=== PATIENT | male | born 1955 | race Caucasian/White ===

== ENCOUNTER 2018-06-02 20:21 | Inpatient (IN) | payer MEDICARE, MEDICAID ==
[~2018-06-02] VITALS: Ht 162.6 cm; Wt 62.6 kg
[2018-06-02 20:45] LABS: BASOPHILS % (AUTO) 0.5 % (0.0-2.0); EOSINOPHILS % (AUTO) 1.5 % (1.0-6.0); HEMOGLOBIN 12.3 g/dL (13.5-17.5); LYMPHOCYTES % (AUTO) 34.5 % (22.0-44.0); MEAN CORPUSCULAR HEMOGLOBIN 29.6 pg (26.0-34.0); MEAN CORPUSCULAR HGB CONC 33.2 G/dL (31.0-37.0); MEAN CORPUSCULAR VOLUME 89 fL (80-100); MONOCYTES # (AUTO) 0.9 K/uL (0.1-1.0); MONOCYTES % (AUTO) 10.8 % (2.0-9.0); NEUTROPHILS # (AUTO) 4.5 K/uL (1.8-7.7); NEUTROPHILS % (AUTO) 52.7 % (40.0-70.0); PLATELET COUNT (AUTO) 131 K/uL (150-450); RED BLOOD CELL COUNT(AUTO) 4.14 MIL/uL (4.50-5.90); RED CELL DISTRIBUTION WIDTH 13.9 % (11.5-14.5)
[2018-06-02 20:56] LABS: ANION GAP 9 mmol/L (8-16); CALCIUM, TOTAL 8.4 mg/dL (8.8-10.5); CARBON DIOXIDE 24 mmol/L (22-29); CHLORIDE 101 mmol/L (98-107); CREATININE 0.85 mg/dL (0.60-1.30); GLOMERULAR FILTR. RATE CALC > 60 mL/min (>60); GLUCOSE,RANDOM 102 mg/dL (70-110); POTASSIUM 4.6 mmol/L (3.5-5.1); SODIUM SERUM 134 mmol/L (136-145); UREA NITROGEN, BLOOD 22 mg/dL (7-18)
[2018-06-02 21:02] LABS: ALANINE AMINOTRANSFERASE 28 U/L (12-78); ALBUMIN 3.6 g/dL (3.4-5.0); ALKALINE PHOSPHATASE 126 U/L (46-116); ASPARTATE AMINOTRANSFERASE 32 U/L (15-37); BILIRUBIN,TOTAL 0.3 mg/dL (0.1-1.0); TOTAL PROTEIN, SERUM 7.9 g/dL (6.4-8.2)
[2018-06-03] MEDS ORDERED: ZOLPIDEM TARTRATE 10 MG TABLET PO PRN ×2 (00:15→11:45)
[2018-06-03] MEDS ORDERED: OLANZapine 5 MG RAPDIS TABLET PO PRN (00:15)
[2018-06-03] MEDS ORDERED: LORazepam 2 MG TABLET PO PRN ×2 (00:15→12:15)
[2018-06-03 01:51] VITALS: BP 127/78
[2018-06-03] MEDS ORDERED: PNEUMOCOCCAL VACCINE POLYVALENT 0.5 ML VIAL [PPSV23] IM ONE (04:45)
[2018-06-03 08:32] VITALS: BP 109/63
[2018-06-03] MEDS ORDERED: TUBERCULIN, PURIFIED PROTEIN DERIVATIVE 5 TU/0.1 ML SYG ID ONE (11:45)
[2018-06-03] MEDS ORDERED: HydrOXYzine PAMOATE 50 MG CAPSULE PO PRN (11:45)
[2018-06-03] MEDS ORDERED: MAG HYDROX/AL HYDROX/SIMETH ES 30 ML SUSPENSION UDCUP PO PRN (11:45)
[2018-06-03] MEDS ORDERED: ACETAMINOPHEN 325 MG TABLET PO PRN (11:45)
[2018-06-03] MEDS ORDERED: GuaiFENesin/D-METHORPHAN [SUGAR-FREE] 200-20MG/10 ML SYRUP UDCUP PO PRN (11:45)
[2018-06-03] MEDS ORDERED: PROMETHAZINE HCL 25 MG TABLET PO PRN (11:45)
[2018-06-03] MEDS ORDERED: LOPERAMIDE HCL 2 MG CAPSULE PO PRN (11:45)
[2018-06-03] MEDS ORDERED: MAGNESIUM HYDROXIDE SUSPENSION 30 ML UDCUP PO PRN (11:45)
[2018-06-03] MEDS ORDERED: CYANOCOBALAMIN 1,000 MCG/ML VIAL IM ONE (12:15)
[2018-06-03] MEDS ORDERED: CloNIDine HCL 0.1 MG TABLET PO PRN (12:15)
[2018-06-03 16:10] VITALS: BP 113/75
[2018-06-03] MEDS ORDERED: THIAMINE HCL 100 MG TABLET PO SCH (17:00)
[2018-06-03] MEDS: OLANZapine 5 MG RAPDIS TABLET PO SCH (20:30)
[2018-06-04 04:57] VITALS: BP 110/68
[2018-06-04 08:12] VITALS: BP 107/65
[2018-06-04] MEDS: THIAMINE HCL 100 MG TABLET PO SCH (08:30)
[2018-06-04] MEDS: PANTOPRAZOLE SODIUM 40 MG DR TABLET PO SCH (08:31)
[2018-06-04] MEDS: MULTIVITAMINS WITH MINERALS, THERAPEUTIC TABLET PO SCH (08:31)
[2018-06-04] MEDS: FOLIC ACID 1 MG TABLET PO SCH (08:31)
[2018-06-04] MEDS ORDERED: FOLIC ACID 1 MG TABLET PO SCH (09:00)
[2018-06-04 16:03] VITALS: BP 121/73
[2018-06-04] MEDS: OLANZapine 5 MG RAPDIS TABLET PO SCH (20:38)
[2018-06-05 05:31] VITALS: BP 109/70
[2018-06-05] MEDS: FOLIC ACID 1 MG TABLET PO SCH (08:19)
[2018-06-05] MEDS: PANTOPRAZOLE SODIUM 40 MG DR TABLET PO SCH (08:19)
[2018-06-05] MEDS: MULTIVITAMINS WITH MINERALS, THERAPEUTIC TABLET PO SCH (08:19)
[2018-06-05] MEDS: THIAMINE HCL 100 MG TABLET PO SCH (08:19)
[2018-06-05 08:27] VITALS: BP 135/56
[2018-06-05 09:23] LABS: CHOL/HDL RATIO 3.8 (4.2-7.3)
[2018-06-05 16:58] VITALS: BP 115/73
[2018-06-05] MEDS ORDERED: OLANZapine 10 MG RAPDIS TABLET PO SCH (21:00)
[2018-06-06 06:20] VITALS: BP 120/78
[2018-06-06] MEDS: MULTIVITAMINS WITH MINERALS, THERAPEUTIC TABLET PO SCH (09:23)
[2018-06-06] MEDS: THIAMINE HCL 100 MG TABLET PO SCH (09:23)
[2018-06-06] MEDS: PANTOPRAZOLE SODIUM 40 MG DR TABLET PO SCH (09:23)
[2018-06-06] MEDS: FOLIC ACID 1 MG TABLET PO SCH (09:23)
[2018-06-06 09:57] VITALS: BP 116/88
[2018-06-06 16:11] VITALS: BP 140/80
[2018-06-06] MEDS: OLANZapine 5 MG RAPDIS TABLET PO SCH (20:33)
[2018-06-07 07:24] LABS: EOSINOPHILS % (AUTO) 0 % (1.0-6.0); HEMATOCRIT 35.9 % (41-53); HEMOGLOBIN 11.9 g/dL (13.5-17.5); LYMPHOCYTES % (AUTO) 36.1 % (22.0-44.0); MEAN CORPUSCULAR HEMOGLOBIN 30.2 pg (26.0-34.0); MEAN CORPUSCULAR HGB CONC 33.3 G/dL (31.0-37.0); MEAN CORPUSCULAR VOLUME 91 fL (80-100); MONOCYTES # (AUTO) 0.8 K/uL (0.1-1.0); MONOCYTES % (AUTO) 13.9 % (2.0-9.0); NEUTROPHILS # (AUTO) 2.8 K/uL (1.8-7.7); PLATELET COUNT (AUTO) 118 K/uL (150-450); RED BLOOD CELL COUNT(AUTO) 3.96 MIL/uL (4.50-5.90); RED CELL DISTRIBUTION WIDTH 14.1 % (11.5-14.5)
[2018-06-07 07:28] VITALS: BP 122/83
[2018-06-07 07:42] LABS: ALANINE AMINOTRANSFERASE 22 U/L (12-78); ALBUMIN 3.3 g/dL (3.4-5.0); ALKALINE PHOSPHATASE 102 U/L (46-116); ANION GAP 4 mmol/L (8-16); ASPARTATE AMINOTRANSFERASE 23 U/L (15-37); BILIRUBIN,TOTAL 0.2 mg/dL (0.1-1.0); CALCIUM, TOTAL 8.2 mg/dL (8.8-10.5); CARBON DIOXIDE 32 mmol/L (22-29); CHLORIDE 104 mmol/L (98-107); CREATINE KINASE, TOTAL ONLY 27 U/L (39-308); CREATININE 0.88 mg/dL (0.60-1.30); GLOMERULAR FILTR. RATE CALC > 60 mL/min (>60); GLUCOSE,RANDOM 99 mg/dL (70-110); POTASSIUM 4.4 mmol/L (3.5-5.1); SODIUM SERUM 140 mmol/L (136-145); TOTAL PROTEIN, SERUM 6.8 g/dL (6.4-8.2); UREA NITROGEN, BLOOD 23 mg/dL (7-18)
[2018-06-07 08:27] VITALS: BP 121/80
[2018-06-07] MEDS: PANTOPRAZOLE SODIUM 40 MG DR TABLET PO SCH (08:36)
[2018-06-07] MEDS: MULTIVITAMINS WITH MINERALS, THERAPEUTIC TABLET PO SCH (08:36)
[2018-06-07] MEDS: THIAMINE HCL 100 MG TABLET PO SCH (08:36)
[2018-06-07] MEDS: FOLIC ACID 1 MG TABLET PO SCH (08:36)
[2018-06-07 16:15] VITALS: BP 108/75
[2018-06-07] MEDS: OLANZapine 5 MG RAPDIS TABLET PO SCH (20:10)
[2018-06-08 05:14] VITALS: BP 110/68
[2018-06-08] MEDS: THIAMINE HCL 100 MG TABLET PO SCH (08:28)
[2018-06-08] MEDS: PANTOPRAZOLE SODIUM 40 MG DR TABLET PO SCH (08:28)
[2018-06-08] MEDS: MULTIVITAMINS WITH MINERALS, THERAPEUTIC TABLET PO SCH (08:28)
[2018-06-08] MEDS: FOLIC ACID 1 MG TABLET PO SCH (08:28)
[2018-06-08 09:52] VITALS: BP 130/90
[2018-06-08 16:12] VITALS: BP 104/64
[2018-06-08] MEDS: OLANZapine 5 MG RAPDIS TABLET PO SCH (20:12)
[2018-06-09 05:59] VITALS: BP 106/68
[2018-06-09] MEDS: MULTIVITAMINS WITH MINERALS, THERAPEUTIC TABLET PO SCH (08:42)
[2018-06-09] MEDS: PANTOPRAZOLE SODIUM 40 MG DR TABLET PO SCH (08:42)
[2018-06-09] MEDS: THIAMINE HCL 100 MG TABLET PO SCH (08:42)
[2018-06-09] MEDS: FOLIC ACID 1 MG TABLET PO SCH (08:42)
[2018-06-09 16:23] VITALS: BP 110/79
[2018-06-09] MEDS: OLANZapine 5 MG RAPDIS TABLET PO SCH (20:41)
[2018-06-10 05:15] VITALS: BP 106/70
[2018-06-10] MEDS: PANTOPRAZOLE SODIUM 40 MG DR TABLET PO SCH (08:12)
[2018-06-10] MEDS: FOLIC ACID 1 MG TABLET PO SCH (08:12)
[2018-06-10] MEDS: MULTIVITAMINS WITH MINERALS, THERAPEUTIC TABLET PO SCH (08:12)
[2018-06-10] MEDS: THIAMINE HCL 100 MG TABLET PO SCH (08:12)
[2018-06-10 08:26] VITALS: BP 130/80
[2018-06-10 16:14] VITALS: BP 125/87
[2018-06-10] MEDS: OLANZapine 10 MG RAPDIS TABLET PO SCH (20:33)
[2018-06-11 00:44] VITALS: BP 122/86
[2018-06-11 08:38] VITALS: BP 114/71
[2018-06-11] MEDS: FOLIC ACID 1 MG TABLET PO SCH (08:55)
[2018-06-11] MEDS: THIAMINE HCL 100 MG TABLET PO SCH (08:55)
[2018-06-11] MEDS: PANTOPRAZOLE SODIUM 40 MG DR TABLET PO SCH (08:55)
[2018-06-11] MEDS: MULTIVITAMINS WITH MINERALS, THERAPEUTIC TABLET PO SCH (08:55)
[2018-06-11 16:30] VITALS: BP 147/91
[2018-06-11] MEDS: OLANZapine 10 MG RAPDIS TABLET PO SCH (20:37)
[2018-06-12 06:24] VITALS: BP 100/64
[2018-06-12] MEDS: THIAMINE HCL 100 MG TABLET PO SCH (08:19)
[2018-06-12] MEDS: FOLIC ACID 1 MG TABLET PO SCH (08:20)
[2018-06-12] MEDS: MULTIVITAMINS WITH MINERALS, THERAPEUTIC TABLET PO SCH (08:20)
[2018-06-12] MEDS: PANTOPRAZOLE SODIUM 40 MG DR TABLET PO SCH (08:20)
[2018-06-12 08:41] VITALS: BP 106/66
[2018-06-12 17:41] VITALS: BP 128/86
[2018-06-12] MEDS: OLANZapine 10 MG RAPDIS TABLET PO SCH (20:35)
[2018-06-13 02:49] VITALS: BP 126/81
[2018-06-13] MEDS: PANTOPRAZOLE SODIUM 40 MG DR TABLET PO SCH (08:06)
[2018-06-13] MEDS: MULTIVITAMINS WITH MINERALS, THERAPEUTIC TABLET PO SCH (08:06)
[2018-06-13] MEDS: FOLIC ACID 1 MG TABLET PO SCH (08:06)
[2018-06-13] MEDS: THIAMINE HCL 100 MG TABLET PO SCH ×2 (08:06→17:06)
[2018-06-13 08:21] VITALS: BP 118/91
[2018-06-13] MEDS ORDERED: CYANOCOBALAMIN 1,000 MCG/ML VIAL IM ONE (13:30)
[2018-06-13 16:33] VITALS: BP 121/86
[2018-06-13] MEDS: OLANZapine 10 MG RAPDIS TABLET PO SCH (20:27)
[2018-06-14 05:34] VITALS: BP 118/70
[2018-06-14] MEDS: MULTIVITAMINS WITH MINERALS, THERAPEUTIC TABLET PO SCH (08:28)
[2018-06-14] MEDS: PANTOPRAZOLE SODIUM 40 MG DR TABLET PO SCH (08:28)
[2018-06-14] MEDS: THIAMINE HCL 100 MG TABLET PO SCH ×2 (08:28→16:47)
[2018-06-14] MEDS: FOLIC ACID 1 MG TABLET PO SCH (08:28)
[2018-06-14 08:31] VITALS: BP 104/67
[2018-06-14 16:03] VITALS: BP 123/74
[2018-06-14] MEDS: OLANZapine 10 MG RAPDIS TABLET PO SCH (20:41)
[2018-06-15 01:41] VITALS: BP 120/86
[2018-06-15] MEDS: FOLIC ACID 1 MG TABLET PO SCH (08:20)
[2018-06-15] MEDS: THIAMINE HCL 100 MG TABLET PO SCH ×2 (08:20→16:46)
[2018-06-15] MEDS: MULTIVITAMINS WITH MINERALS, THERAPEUTIC TABLET PO SCH (08:20)
[2018-06-15] MEDS: PANTOPRAZOLE SODIUM 40 MG DR TABLET PO SCH (08:20)
[2018-06-15 08:37] VITALS: BP 113/81
[2018-06-15 16:12] VITALS: BP 115/81
[2018-06-15] MEDS: OLANZapine 10 MG RAPDIS TABLET PO SCH (20:31)
[2018-06-16 05:28] VITALS: BP 110/70
[2018-06-16 08:24] VITALS: BP 142/86
[2018-06-16] MEDS: FOLIC ACID 1 MG TABLET PO SCH (08:25)
[2018-06-16] MEDS: PANTOPRAZOLE SODIUM 40 MG DR TABLET PO SCH (08:25)
[2018-06-16] MEDS: MULTIVITAMINS WITH MINERALS, THERAPEUTIC TABLET PO SCH (08:25)
[2018-06-16] MEDS: THIAMINE HCL 100 MG TABLET PO SCH ×2 (08:25→16:30)
[2018-06-16 16:03] VITALS: BP 110/63
[2018-06-16] MEDS: OLANZapine 10 MG RAPDIS TABLET PO SCH (20:30)
[2018-06-17 05:33] VITALS: BP 118/70
[2018-06-17] MEDS: MULTIVITAMINS WITH MINERALS, THERAPEUTIC TABLET PO SCH (08:20)
[2018-06-17] MEDS: THIAMINE HCL 100 MG TABLET PO SCH ×2 (08:20→16:30)
[2018-06-17] MEDS: FOLIC ACID 1 MG TABLET PO SCH (08:21)
[2018-06-17] MEDS: PANTOPRAZOLE SODIUM 40 MG DR TABLET PO SCH (08:21)
[2018-06-17 08:36] VITALS: BP 119/66
[2018-06-17 16:10] VITALS: BP 128/75
[2018-06-17] MEDS: OLANZapine 10 MG RAPDIS TABLET PO SCH (22:08)
[2018-06-18 06:04] VITALS: BP 120/81
[2018-06-18] MEDS: MULTIVITAMINS WITH MINERALS, THERAPEUTIC TABLET PO SCH (08:11)
[2018-06-18] MEDS: PANTOPRAZOLE SODIUM 40 MG DR TABLET PO SCH (08:11)
[2018-06-18] MEDS: FOLIC ACID 1 MG TABLET PO SCH (08:11)
[2018-06-18] MEDS: THIAMINE HCL 100 MG TABLET PO SCH ×2 (08:11→16:31)
[2018-06-18 08:13] VITALS: BP 120/72
[2018-06-18 16:15] VITALS: BP 119/72
[2018-06-18] MEDS: OLANZapine 10 MG RAPDIS TABLET PO SCH (21:19)
[2018-06-19 05:31] VITALS: BP 129/83
[2018-06-19] MEDS: MULTIVITAMINS WITH MINERALS, THERAPEUTIC TABLET PO SCH (08:26)
[2018-06-19] MEDS: PANTOPRAZOLE SODIUM 40 MG DR TABLET PO SCH (08:26)
[2018-06-19] MEDS: FOLIC ACID 1 MG TABLET PO SCH (08:26)
[2018-06-19] MEDS: THIAMINE HCL 100 MG TABLET PO SCH ×2 (08:26→16:31)
[2018-06-19 08:35] VITALS: BP 122/82
[2018-06-19 16:05] VITALS: BP 140/82
[2018-06-19] MEDS: OLANZapine 10 MG RAPDIS TABLET PO SCH (20:30)
[2018-06-20 06:36] VITALS: BP 122/78
[2018-06-20 08:00] VITALS: BP 119/88
[2018-06-20] MEDS: THIAMINE HCL 100 MG TABLET PO SCH ×2 (08:17→16:32)
[2018-06-20] MEDS: FOLIC ACID 1 MG TABLET PO SCH (08:17)
[2018-06-20] MEDS: MULTIVITAMINS WITH MINERALS, THERAPEUTIC TABLET PO SCH (08:17)
[2018-06-20] MEDS: PANTOPRAZOLE SODIUM 40 MG DR TABLET PO SCH (08:17)
[2018-06-20 16:02] VITALS: BP 115/72
[2018-06-20] MEDS: OLANZapine 10 MG RAPDIS TABLET PO SCH (20:36)
[2018-06-21 04:48] VITALS: BP 120/81
[2018-06-21] MEDS: PANTOPRAZOLE SODIUM 40 MG DR TABLET PO SCH (08:17)
[2018-06-21] MEDS: FOLIC ACID 1 MG TABLET PO SCH (08:17)
[2018-06-21] MEDS: THIAMINE HCL 100 MG TABLET PO SCH ×2 (08:17→16:32)
[2018-06-21] MEDS: MULTIVITAMINS WITH MINERALS, THERAPEUTIC TABLET PO SCH (08:17)
[2018-06-21 08:20] VITALS: BP 113/71
[2018-06-21 16:04] VITALS: BP 113/67
[2018-06-21] MEDS: OLANZapine 10 MG RAPDIS TABLET PO SCH (20:33)
[2018-06-22 05:16] VITALS: BP 110/70
[2018-06-22 08:14] VITALS: BP 115/74
[2018-06-22] MEDS: FOLIC ACID 1 MG TABLET PO SCH (08:21)
[2018-06-22] MEDS: MULTIVITAMINS WITH MINERALS, THERAPEUTIC TABLET PO SCH (08:21)
[2018-06-22] MEDS: PANTOPRAZOLE SODIUM 40 MG DR TABLET PO SCH (08:21)
[2018-06-22] MEDS: THIAMINE HCL 100 MG TABLET PO SCH ×2 (08:22→16:29)
[2018-06-22 16:13] VITALS: BP 108/63
[2018-06-22] MEDS: OLANZapine 10 MG RAPDIS TABLET PO SCH (20:34)
[2018-06-23 04:49] VITALS: BP 110/68
[2018-06-23] MEDS: THIAMINE HCL 100 MG TABLET PO SCH (08:03)
[2018-06-23] MEDS: FOLIC ACID 1 MG TABLET PO SCH (08:03)
[2018-06-23] MEDS: MULTIVITAMINS WITH MINERALS, THERAPEUTIC TABLET PO SCH (08:03)
[2018-06-23] MEDS: PANTOPRAZOLE SODIUM 40 MG DR TABLET PO SCH (08:03)
[2018-06-23 08:06] VITALS: BP 115/79
[2018-06-23 08:31] LABS: BASOPHILS % (AUTO) 0.3 % (0.0-2.0); EOSINOPHILS % (AUTO) 2.1 % (1.0-6.0); HEMATOCRIT 34.8 % (41-53); HEMOGLOBIN 11.4 g/dL (13.5-17.5); LYMPHOCYTES # (AUTO) 2.8 K/uL (1.0-4.8); LYMPHOCYTES % (AUTO) 40.9 % (22.0-44.0); MEAN CORPUSCULAR HEMOGLOBIN 28.8 pg (26.0-34.0); MEAN CORPUSCULAR HGB CONC 32.6 G/dL (31.0-37.0); MEAN CORPUSCULAR VOLUME 88 fL (80-100); MONOCYTES # (AUTO) 0.8 K/uL (0.1-1.0); MONOCYTES % (AUTO) 11.6 % (2.0-9.0); NEUTROPHILS # (AUTO) 3.1 K/uL (1.8-7.7); NEUTROPHILS % (AUTO) 45.1 % (40.0-70.0); PLATELET COUNT (AUTO) 129 K/uL (150-450); RED BLOOD CELL COUNT(AUTO) 3.95 MIL/uL (4.50-5.90); RED CELL DISTRIBUTION WIDTH 13.4 % (11.5-14.5)
[2018-06-23 09:31] LABS: ALBUMIN 3.3 g/dL (3.4-5.0); ALKALINE PHOSPHATASE 88 U/L (46-116); ANION GAP 7 mmol/L (8-16); ASPARTATE AMINOTRANSFERASE 24 U/L (15-37); BILIRUBIN,TOTAL 0.2 mg/dL (0.1-1.0); CALCIUM, TOTAL 8.4 mg/dL (8.8-10.5); CARBON DIOXIDE 30 mmol/L (22-29); CHLORIDE 104 mmol/L (98-107); CREATINE KINASE, TOTAL ONLY 34 U/L (39-308); CREATININE 0.89 mg/dL (0.60-1.30); GLOMERULAR FILTR. RATE CALC > 60 mL/min (>60); GLUCOSE,RANDOM 97 mg/dL (70-110); POTASSIUM 4.2 mmol/L (3.5-5.1); SODIUM SERUM 141 mmol/L (136-145); UREA NITROGEN, BLOOD 30 mg/dL (7-18)
[2018-06-23 09:43] LABS: ALANINE AMINOTRANSFERASE 24 U/L (12-78)
[2018-06-23 16:27] VITALS: BP 116/78
[2018-06-23] MEDS: OLANZapine 10 MG RAPDIS TABLET PO SCH (21:36)
[2018-06-24 05:30] VITALS: BP 110/70
[2018-06-24 08:02] VITALS: BP 128/66
[2018-06-24] MEDS: PANTOPRAZOLE SODIUM 40 MG DR TABLET PO SCH (08:20)
[2018-06-24] MEDS: MULTIVITAMINS WITH MINERALS, THERAPEUTIC TABLET PO SCH (08:20)
[2018-06-24] MEDS ORDERED: OLAN10TA3 PO (10:33)
[2018-06-24] MEDS ORDERED: PANT40TA25 PO (10:33)
[2018-06-24] MEDS ORDERED: OLAN10TA6 PO (11:05)
== END 2018-06-24 12:40 | disposition home or self-care (01) | DRG 885 ==
LOC: EMS 20:23 → B2X 23:30
PROVIDERS: ADMIT Psychiatry & Neurology Psychiatry; ATTEND Psychiatry & Neurology Psychiatry
DX: F25.1 Schizoaffective disorder, depressive type (principal); E87.1 Hypo-osmolality and hyponatremia; E87.0 Hyperosmolality and hypernatremia; R45.851 Suicidal ideations; F10.129 Alcohol abuse with intoxication, unspecified; G47.00 Insomnia, unspecified; I10 Essential (primary) hypertension; K21.9 Gastro-esophageal reflux disease without esophagitis; K59.00 Constipation, unspecified; Z91.19 Patient's noncompliance with other medical treatment and regimen; E83.51 Hypocalcemia; D69.6 Thrombocytopenia, unspecified; D64.9 Anemia, unspecified; R26.9 Unspecified abnormalities of gait and mobility; Z79.899 Other long term (current) drug therapy; Z28.21 Immunization not carried out because of patient refusal
CPT/HCPCS: 80074; 83735; 87081; G0480; J3420